=== PATIENT | female | born 1995 | race Caucasian/White ===

== ENCOUNTER 2020-07-28 19:06 | Emergency (ER) | payer OTHER, SELFPAY ==
[2020-07-28 19:34] VITALS: BP 93/66; PULSE 120; RESP 26; TEMP 35.9; O2SAT 100; BMI 24.3
--- NOTE | 2020-07-28 20:15 | ED_ITS ---
HPI - Nausea/Vomiting/Diarrhea General: Chief complaint: Nausea/Vomiting/Diarrhea Stated complaint: N/V/D, SEVERE ABD PAIN Time Seen by Provider: 07/28/20 20:06 Source: patient Mode of arrival: ambulatory Limitations: no limitations History of Present Illness: HPI Narrative: 25-year-old female patient presents to the emergency department with nausea vomiting diarrhea since 7 AM this morning. She reports exposure to other family members with similar symptoms last week. Her spouse was also ill with similar symptoms 2 days ago. She reports continued nausea, has not been able to keep anything down. She denies hematemesis or hematochezia. She denies recent antibiotic use. She denies fever, reports chills. She reports history of EGD years ago, reports chronic alternating pattern of diarrhea and constipation. She reports numerous episodes of diarrhea today. MD elicited complaint: nausea, vomiting and diarrhea Associated nausea: Yes Associated abdominal pain: Yes Location of pain: Epigastric Pain consistency: intermittent Quality: cramping Associated symtoms: Reports decreased urine output, fevers/chills and nausea; Denies altered mental status, anxiety, chest pain, diaphoresis, dysuria, fatigue, headache(s), malaise or palpitations Review of Systems General: Reports: 10 or more systems reviewed and unremarkable except in HPI and below Const: Denies: fever(s), chills, fatigue, malaise or diaphoresis Eyes: Denies: blurry vision or eye redness ENMT: Denies: throat pain, dental pain or disequilibrium Card: Denies: chest pain, palpitations or irregular heart rhythm Resp: Denies: dyspnea, productive cough, non-productive cough or wheezing GI: Reports: abdominal pain (upper), nausea, vomiting and diarrhea; Denies: heartburn, excessive flatus, rectal pain or melena : Denies: difficulty voiding or dysuria Musc: Denies: neck pain, back pain, joint swelling, muscle cramps or muscle weakness Skin/Breast: Denies: rash or pruritus Neuro: Denies: headache(s), weakness in extremities or behavioral changes Psych: Denies: anxiety, depression or change in appetite Missael/Lymph: Denies: easy bruising PFS ED PFSH: Medical History (Updated 07/28/20 @ 22:31 by MARGE Zhang) Healthy adult Female Reproductive History: Date of last menstrual period: 06/19/20 Physical Exam Const: COMMON NORMALS: no acute distress, patient oriented x3 and alert EXAM LIMITATIONS: no altered mental status and no physical limitations GENERAL APPEARANCE: cooperative, well kempt, well hydrated and other (appears not feeling well) NUTRITIONAL APPEARANCE: thin ORIENTATION/CONSCIOUSNESS: Yes awake, Yes oriented to person, Yes oriented to place and Yes oriented to time HENMT: COMMON NORMALS: normocephalic, atraumatic, Normal external nose present and moist oral mucous membranes HEAD & SCALP: normal to inspection, normocephalic and atraumatic FACE & SINUS: normal facial exam and face symmetric NOSE: Normal external nose present MOUTH: moist mucous membranes abnormal (dry) Eye: COMMON NORMALS: Equal, round and reactive pupils present and EOMs intact bilaterally GENERAL EYE: appearance normal, both eyes and all related structures PUPIL: Yes Equal, round and reactive pupils present Neck/C-Spine: COMMON NORMALS: full ROM and no lymphadenopathy GENERAL: Yes normal visual inspection and Yes trachea midline CERVICAL SPINE: Yes cervical ROM normal Lymph: LYMPHATIC: no lymphadenopathy noted Chest: COMMONS NORMALS: normal inspection of the chest Resp: COMMON NORMALS: normal respiratory effort, No retractions, No use of accessory muscles and clear to auscultation bilaterally EFFORT & INSPECTION: Yes able to speak in complete sentences AUSCULTATION: clear to auscultation bilaterally Cardio: COMMON NORMALS: regular rate, regular rhythm, S1 normal heart sound present, S2 normal heart sound present and Peripheral pulses 2+ throughout RATE: regular rate RHYTHM: regular rhythm HEART SOUNDS: S1 normal heart sound present and S2 normal heart sound present PERIPHERAL PULSES: Peripheral pulses 2+ throughout GI: COMMON NORMALS: Normal to inspection, nondistended, normoactive bowel sounds present, Soft to palpation and non-tender INSPECTION: Yes normal to inspection, No abdominal wall ecchymosis, No abdominal distension, No central obesity and No visible herniation PALPATION: Yes Soft to palpation : COMMON NORMALS: Yes no CVA tenderness BLADDER/KIDNEY EXAM: Yes no CVA tenderness Back/Pelvis: COMMON NORMALS: no CVA tenderness and thoracic and lumbar spine normal to inspection Extremity: COMMON NORMALS: normal to inspection, full ROM, capillary refill normal and no pedal edema GENERAL: Yes normal exam except as noted Neuro: COMMON NORMALS: patient oriented x3 and no focal motor deficits SENSORIUM/ORIENTATION: Yes alert, Yes oriented to person, Yes oriented to place and Yes oriented to time Psych: COMMON NORMALS: mental status grossly normal, Normal thought process present and cooperative APPEARANCE: Yes well kempt ACTIVITY/MOTOR BEHAVIOR: Yes appropriate eye contact THOUGHT PROCESS: Normal thought process present Skin: COMMON NORMALS: no rashes or lesions noted, no wounds, turgor normal, no petechiae and no mottling GENERAL SKIN EXAM: no rashes or lesions noted, elasticity normal and turgor normal Course Vital Signs: Vital signs: Vital Signs Temperature 96.6 F L 07/28/20 19:34 Pulse Rate 88 07/28/20 22:54 Respiratory Rate 16 07/28/20 22:54 Blood Pressure 113/72 07/28/20 22:54 Pulse Oximetry 98 07/28/20 22:54 MDM - Nausea/Vomiting/Diarrhea MDM Narrative: Medical decision making narrative: Pleasant 25-year-old female patient presents to the emergency department with 1 day history of nausea vomiting diarrhea. Positive exposure to other individuals with similar symptoms in her family. Normal saline, 1500 cc bolus was provided, Zofran Pepcid also administered, nausea resolved, she was able to tolerate ice chips and drink water. She reports feeling much much better after medication and IV bolus of fluids administered. White blood count slightly elevated which contributes with vomiting, and ion gap abnormal which indicative of dehydration. Urinalysis with bacteria and white blood cells. She was placed on Macrodantin for 3 days twice daily due to potential urinary tract infection findings. Abdominal exam was soft and nonteder without acute abdominal findings. She was placed on Pepcid, Zofran and Macrodantin as outpatient therapy due to probable gastroenteritis. Advised to follow-up with her primary care if she is not feeling well the next 2 to 3 days, advised to return to the emergency department if she develops nausea vomiting despite use of Zofran. Lab Data: Labs: Lab Results 07/28/20 07/28/20 07/28/20 Range/Units 20:43 20:43 21:50 WBC 14.2 H (4.0-10.0) 10^3/ uL RBC 5.71 H (4.1-5.3) 10^6/u L Hgb 16.6 H (11.5-15.3) g/dL Hct 48.9 H (37.0-47.0) % MCV 85.6 (81-99) fL MCH 29.1 (28.0-34.0) pg MCHC 33.9 (30.0-36.0) g/dL RDW 11.9 L (12.1-15.1) % Plt Count 347 (130-400) 10^3/c mm MPV 9.4 (7.4-10.4) fL Neut % (Auto) 92.7 % Lymph % (Auto) 2.6 % [place] % (Auto) 3.9 % Eos % (Auto) 0.0 % Baso % (Auto) 0.4 % Neut # (Auto) 13.15 H (1.8-7.7) 10^3/u L Lymph # (Auto) 0.4 L (0.8-4.8) 10^3/u L [place] # (Auto) 0.6 (0.2-0.9) 10^3/u L Eos # (Auto) 0.0 (0.0-0.8) 10^3/u L Baso # (Auto) 0.1 (0.0-0.1) 10^3/u L Nucleated RBC % (a uto) 0 % Nucleated RBCs # 0.0 /100WBC Sodium 136 (136-145) mmol/L Potassium 4.4 (3.5-5.1) mmol/L Chloride 97 L (98-107) mmol/L Carbon Dioxide 20 L (22-29) mmol/L Anion Gap 23.4 H (5-19) BUN 16 (6-20) mg/dL Creatinine 1.0 H (0.5-0.9) mg/dL GFR Calculation 68.1 L (90-130) mL/min Glucose 121 H (65-115) mg/dL Calculated Osmolal ity 284 L (285-295) mOsm/k g Calcium 10.0 (8.5-10.5) mg/dL Total Bilirubin 0.8 (0.15-1.2) mg/dL AST 19 (0-32) U/L ALT 15 (0-33) U/L Alkaline Phosphata se 76 (35-105) IU/L Total Protein 9.2 H (6.6-8.7) g/dL Albumin 5.2 (3.5-5.2) g/dL Globulin 4.0 (1.3-4.6) g/dL Lipase 30 (13-60) U/L HCG, Qual Negative (Negative) Urine Color (Yellow) Urine Appearance (CLEAR) Urine pH (5-7) Ur Specific Gravit y (1.005-1.030) Urine Protein (Negative) Urine Glucose (UA) (Normal) Urine Ketones (Negative) Urine Blood (Negative) Urine Nitrate (Negative) Urine Bilirubin (Negative) Urine Urobilinogen (Negative) mg/dL Ur Leukocyte Yuly ase (Negative) Urine RBC (0-2) /hpf Urine WBC (0-5) /hpf Ur Squamous Epith Cells (0-5) /hpf Amorphous Sediment Urine Bacteria (NONE) /hpf Hyaline Casts /lpf Urine Mucus /hpf 07/28/20 07/28/20 Range/Units 21:50 22:22 WBC (4.0-10.0) 10^3/ uL RBC (4.1-5.3) 10^6/u L Hgb (11.5-15.3) g/dL Hct (37.0-47.0) % MCV (81-99) fL MCH (28.0-34.0) pg MCHC (30.0-36.0) g/dL RDW (12.1-15.1) % Plt Count (130-400) 10^3/c mm MPV (7.4-10.4) fL Neut % (Auto) % Lymph % (Auto) % [place] % (Auto) % Eos % (Auto) % Baso % (Auto) % Neut # (Auto) (1.8-7.7) 10^3/u L Lymph # (Auto) (0.8-4.8) 10^3/u L [place] # (Auto) (0.2-0.9) 10^3/u L Eos # (Auto) (0.0-0.8) 10^3/u L Baso # (Auto) (0.0-0.1) 10^3/u L Nucleated RBC % (a uto) % Nucleated RBCs # /100WBC Sodium (136-145) mmol/L Potassium (3.5-5.1) mmol/L Chloride (98-107) mmol/L Carbon Dioxide (22-29) mmol/L Anion Gap (5-19) BUN (6-20) mg/dL Creatinine (0.5-0.9) mg/dL GFR Calculation (90-130) mL/min Glucose (65-115) mg/dL Calculated Osmolal ity (285-295) mOsm/k g Calcium (8.5-10.5) mg/dL Total Bilirubin (0.15-1.2) mg/dL AST (0-32) U/L ALT (0-33) U/L Alkaline Phosphata se (35-105) IU/L Total Protein (6.6-8.7) g/dL Albumin (3.5-5.2) g/dL Globulin (1.3-4.6) g/dL Lipase (13-60) U/L HCG, Qual Cancelled (Negative) Urine Color Yellow (Yellow) Urine Appearance Sl cloudy A (CLEAR) Urine pH 5 (5-7) Ur Specific Gravit y 1.025 (1.005-1.030) Urine Protein 1+ H (Negative) Urine Glucose (UA) Norm (Normal) Urine Ketones Negative (Negative) Urine Blood 3+ H (Negative) Urine Nitrate Negative (Negative) Urine Bilirubin 1+ H (Negative) Urine Urobilinogen 1 H (Negative) mg/dL Ur Leukocyte Yuly ase Trace H (Negative) Urine RBC 0-4 H (0-2) /hpf Urine WBC 0-4 H (0-5) /hpf Ur Squamous Epith Cells 15-25 H (0-5) /hpf Amorphous Sediment Not Reportable Urine Bacteria 2+ H (NONE) /hpf Hyaline Casts 15-25 H /lpf Urine Mucus 4+ /hpf Discharge Plan Discharge Patient Disposition: Home Clinical Impression: Nausea & vomiting Qualifiers: Vomiting type: unspecified Vomiting Intractability: intractable Qualified Code(s): R11.2 - Nausea with vomiting, unspecified Diarrhea Qualifiers: Diarrhea type: unspecified type Qualified Code(s): R19.7 - Diarrhea, unspecified UTI (urinary tract infection) Qualifiers: Urinary tract infection type: acute cystitis Hematuria presence: without hematuria Qualified Code(s): N30.00 - Acute cystitis without hematuria Condition: Stable Prescriptions: New Zofran 4 mg tablet 4 mg PO Q4H 5 Days Qty: 14 RF: 0 Macrobid 100 mg capsule 100 mg PO BID 3 Days Qty: 6 RF: 0 Pepcid 20 mg tablet 20 mg PO BID Qty: 20 RF: 0 Discharge Orders: Discharge ED (Routine); Ordered 07/28/20 Ordered By: Dee Barker Referrals: Sarah Damian MD [Primary Care Provider] - Discharge Diet: Advance as tolerated and Clear Liquid Discharge Activity: Limit activity as instructed Patient Instructions: Urinary Tract Infection in Women (ED), Gastroenteritis (ED), Acute Nausea and Vomiting (ED), Opioid Safety Activity Restrictions/Additional Instructions: Clear liquid diet x24 hours, advance as tolerated, avoid greasy fried spicy foods for several days. Advance to bland diet, eggs, toast, applesauce, eat things that will be easier on your stomach. Return the emergency department if you develop fever, vomiting despite use of Zofran or other concerning symptoms Follow-up with your primary care provider if not well in the next 2 to 3 days. 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
[2020-07-28] MEDS: famotidine 20 mg/2 mL INJ 40 MG IVP (20:47)
[2020-07-28] MEDS: ondansetron 2 mg/ML SDV 2 mL 4 MG IVP (20:48)
[2020-07-28] MEDS: sodium chloride 0.9% 1,000 ML 999 ML IV (20:48)
[2020-07-28 20:55] VITALS: BP 93/72; PULSE 82; RESP 18; O2SAT 99
[2020-07-28 21:01] LABS: Basophils # 0.1 10^3/uL (0.0-0.1); Basophils % 0.4 %; Hematocrit 48.9 % (37.0-47.0); Hemoglobin 16.6 g/dL (11.5-15.3); Lymphocytes # 0.4 10^3/uL (0.8-4.8); Lymphocytes % 2.6 %; Mean Corpuscular HGB Conc 33.9 g/dL (30.0-36.0); Mean Corpuscular Hemoglobin 29.1 pg (28.0-34.0); Mean Corpuscular Volume 85.6 fL (81-99); Mean Platelet Volume 9.4 fL (7.4-10.4); Monocytes # 0.6 10^3/uL (0.2-0.9); Monocytes % 3.9 %; Neutrophils # 13.15 10^3/uL (1.8-7.7); Neutrophils % 92.7 %; Nucleated Red Blood Cells % 0 %; Platelet Count 347 10^3/cmm (130-400); Red Blood Count 5.71 10^6/uL (4.1-5.3); Red Cell Distribution Width 11.9 % (12.1-15.1); White Blood Count 14.2 10^3/uL (4.0-10.0)
[2020-07-28 21:16] VITALS: BP 108/68; PULSE 90; RESP 16; O2SAT 98
[2020-07-28 21:19] LABS: Alanine Aminotransferase 15 U/L (0-33); Albumin Level 5.2 g/dL (3.5-5.2); Alkaline Phosphatase 76 IU/L (35-105); Anion Gap 23.4 (5-19); Aspartate Amino Transferase 19 U/L (0-32); Blood Urea Nitrogen 16 mg/dL (6-20); Carbon Dioxide 20 mmol/L (22-29); Chloride 97 mmol/L (98-107); Glomerular Filtration Rate 68.1 mL/min (90-130); Glucose 121 mg/dL (65-115); Lipase 30 U/L (13-60); Osmolality Calculated 284 mOsm/kg (285-295); Potassium 4.4 mmol/L (3.5-5.1); Sodium 136 mmol/L (136-145); Total Bilirubin 0.8 mg/dL (0.15-1.2); Total Protein 9.2 g/dL (6.6-8.7)
[2020-07-28] MEDS: sodium chloride 0.9% 500 ML 999 ML IV (21:49)
[2020-07-28] MEDS: acetaminophen 500 mg Tablet 1000 MG PO (21:52)
[2020-07-28 22:17] LABS: Add Urine Microscopic? YES; Bilirubin Urine 1+ (Negative); Blood Urine 3+ (Negative); Glucose Urine UA Norm (Normal); Ketones Urine Negative (Negative); Leukocyte Esterase Urine Trace (Negative); Nitrate Urine Negative (Negative); Protein Urine 1+ (Negative); Specific Gravity, Urine 1.025 (1.005-1.030); Urine Color Yellow (Yellow); Urobilinogen Urine 1 mg/dL (Negative); pH Urine 5 (5-7)
[2020-07-28 22:20] LABS: Add Urine Culture? No; Bacteria Urine 2+ /hpf; Hyaline Casts Urine 15-25 /lpf; Mucus Urine 4+ /hpf; RBC Urine 0-4 /hpf (0-2); Squamous Epithelial Cell Urine 15-25 /hpf (0-5); WBC Urine 0-4 /hpf (0-5)
[2020-07-28 22:27] LABS: HCG Qualitative Urine. Negative (Negative)
[2020-07-28] MEDS: nitrofurantoin SR (BID) 100 mg Capsule PO (22:36)
[2020-07-28] MEDS: ketorolac 30 mg/mL INJ 15 MG IVP (22:36)
[2020-07-28] MEDS: ondansetron 4 MG Tablet PO (22:40)
[2020-07-28 22:54] VITALS: BP 113/72; PULSE 88; RESP 16; O2SAT 98
== END 2020-07-28 22:55 | disposition home or self-care (01) ==
PROVIDERS: Emergency Medicine; Emergency Provider Nurse Practitioner Family; PCP Family Medicine
DX: R11.2 Nausea with vomiting, unspecified (principal); R19.7 Diarrhea, unspecified; N30.00 Acute cystitis without hematuria
CPT/HCPCS: 80053; 81001; 81025; 83690; 85025; 96361; 96374; 96375; 99284; J1885; J2405; J3490; J7030; J7040; Q0162

== ENCOUNTER → 2021-02-11 08:02 | Outpatient (BNVA) | payer OTHER, SELFPAY | PROVIDERS: PCP Family Medicine; Visit Provider Nurse Practitioner Women's Health | DX: N92.6 Irregular menstruation, unspecified (principal) | CPT/HCPCS: 81025 ==

== ENCOUNTER → 2021-03-28 15:29 | Outpatient (BNVA) | payer OTHER, SELFPAY | PROVIDERS: PCP Family Medicine; Visit Provider Obstetrics & Gynecology | DX: Z34.01 Encounter for supervision of normal first pregnancy, first trimester (principal); Z34.90 Encounter for supervision of normal pregnancy, unspecified, unspecified trimester | CPT/HCPCS: 80307; 84315; 85027; 86592; 86762; 86803; 86850; 86900; 87086; 87340; 87491; 87591 ==

== ENCOUNTER 2021-10-03 17:01 | Inpatient (IN) | payer OTHER, SELFPAY ==
[2021-10-03] VITALS (134 sets, daily range): BP systolic 89–160; BP diastolic 56–93; PULSE 79–187; RESP 18; TEMP 37.3; O2SAT 84–100; BMI 29.5
[2021-10-03] MEDS: lactated ringers 1,000 ML 999 ML IV (17:39)
[2021-10-03 17:56] LABS: Basophils % 0.3 %; Eosinophils % 0.2 %; Hematocrit 37.9 % (37.0-47.0); Hemoglobin 13.9 g/dL (11.5-15.3); Lymphocytes # 2.1 10^3/uL (0.8-4.8); Mean Corpuscular HGB Conc 36.7 g/dL (30.0-36.0); Mean Corpuscular Volume 87.1 fl (81-99); Mean Platelet Volume 11.2 fL (7.4-10.4); Monocytes # 0.6 10^3/uL (0.2-0.9); Monocytes % 4.7 %; Neutrophils # 9.57 10^3/uL (1.8-7.7); Nucleated Red Blood Cells % 0 %; Platelet Count 265 10^3/cmm (130-400); Red Blood Count 4.35 10^6/uL (4.1-5.3); Red Cell Distribution Width 12.2 % (12.1-15.1); White Blood Count 12.5 10^3/uL (4.0-10.0)
[2021-10-03] MEDS: butorphanol 2 mg/mL SDV 1 mL 1 MG IVP (17:59)
--- NOTE | 2021-10-03 18:53 | ANES.PREANE2 ---
Pre-Anesthetic Assessment Height/Weight: Height 1.75 m Weight 90.718 kg Temp Pulse BP Pulse Ox 99.1 F 92 142/72 98 10/03/21 15:46 10/03/21 18:51 10/03/21 18:50 10/03/21 18:51 Preop Diagnosis: Labor Pain AUBRIE Was Beta Tabitha taken within 24 hours: N/A Was Clonidine taken within 24 hours: N/A Social No alcohol and No tobacco Exam alert, oriented x 3, clear to auscultation bilaterally and regular rate & rhythm Airway Submandibular: within normal limits Cervical ROM: within normal limits Mallampati: Class II Dentition: full History/ROS No significant history except as noted and No significant complaints Pulmonary None reported CV/HEM None reported None reported Hepatic None reported GI None reported Metabolic None reported Musc/skel None reported Neuropsych None reported Anesthetic Plan ASA status: 2 Anesthesia: Anesthesia Evaluation and Regional (specify below) Other: AUBRIE Risk of > 500 ml blood loss (7ml/kg in children): No Medications/Allergies Home Medications Medication Instructions Recorded Confirmed Last Taken Type doxylamine succinate 25 mg tablet 25 mg PO Q6H PRN 02/11/21 03/28/21 Unknown History (Unisom (doxylamine)) prenat.vits,ginny,[id number] 1 tab PO DAILY 02/11/21 03/28/21 Unknown History pyridoxine (vitamin B6) 25 mg 25 mg PO DAILY 02/11/21 03/28/21 Unknown History tablet sertraline 50 mg tablet 50 mg PO DAILY 02/11/21 03/28/21 Unknown History famotidine 20 mg tablet (Pepcid) 20 mg PO DAILY 03/04/21 03/28/21 Unknown History promethazine 25 mg tablet 25 mg PO Q6H PRN #30 tab 03/11/21 03/28/21 Unknown Rx metoclopramide HCl 5 mg tablet 5 mg PO QID PRN #90 tab 03/19/21 03/28/21 Unknown Rx (Reglan) Allergies Allergy/AdvReac Type Severity Reaction Status Date / Time No Known Allergies Allergy Verified 04/02/21 09:35 Current Medications Generic Name Dose Route Start Last Admin Trade Name Freq PRN Reason Stop Dose Admin Butorphanol Tartrate 1 mg 10/03/21 17:02 10/03/21 17:59 Butorphanol 2 Mg/Ml Sdv 1 Ml IVP 1 mg Q2H PRN Administration SEVERE PAIN Lactated Ringer's 1,000 mls @ 999 mls/hr 10/03/21 17:05 10/03/21 17:39 Lactated Ringers IV 999 mls/hr .Q1H1M PRN Administration See label comments PFSH Anesthesia Medical History No pertinent past medical history neghx: htn,dm,thyroid,dvt/pe PCP: Sarah Damian Surgical History History of tonsillectomy and adenoidectomy (~1999) Family History Mother Hypercholesteremia Hypertension Grandfather Hypertension Paternal Denies family history of Colon cancer Ovarian cancer Diabetes Heart disease Breast cancer Uterine cancer Thyroid disease Stroke Female Reproductive History Date of last menstrual period: 06/19/20 : 1 Data Anesthesia : 10/03/21 17:30 Short CBC 10/03/21 Range/Units 17:30 WBC 12.5 H (4.0-10.0) 10^3/uL Hgb 13.9 (11.5-15.3) g/dL Hct 37.9 (37.0-47.0) % MCV 87.1 (81-99) fl Plt Count 265 (130-400) 10^3/cmm Neut % (Auto) 77.0 % Neut # (Auto) 9.57 H (1.8-7.7) 10^3/uL Cardiac Studies: No Data to Display
--- NOTE | 2021-10-03 18:55 | ANES.PROC ---
Anesthesia Procedures Procedure/Date: 10/03/21 Epidural: Time Out Performed: Yes Consents Signed: Procedure Consent Consent: requested by attending/covering physician, from patient, risks and benefits reviewed and patient agrees to proceed Lumbar Level: L4-L5 Epidural position: sitting Epidural procedure: sterile prep of area, 1% lidocaine to numb the area, 18 g needle, neg for paresthesia, test dose given, 1.5% xylocaine 1:200k epi (4cc), 0.2% Ropivacaine bolus ml (4cc and Fentanyl 100mcg), placed PCEA, no systemic response, sterile dressing applied, L.U.D. no apparent complications and 0.2% Ropiavacaine @ mls/hr (13cc/hour)
[2021-10-03] MEDS: dextrose 5%-lactated ringers 1,000 ML 125 ML IV (19:16)
--- NOTE | 2021-10-03 22:35 | PM.HP ---
Providers/Chief Complaint Admitting Physician: Case Rodriguez MD Primary Care Provider: Sarah Damian MD Chief Complaint: Contractions History of Present Illness Aleena English is a 26 year old G1, P0 at 40.0 weeks gestation. This is a patient of Dr. Melendrez for whom I am covering. Her is currently uncomplicated. The patient presented to labor and delivery due to contractions that started at approximately 12:30 PM on 10/03/2021. The contractions gradually got stronger so she presented for further evaluation. In labor and delivery she was noted to be 2 cm dilation and after an hour changed to 3 cm. The patient denies any chest pains, shortness of breath, nausea, vomiting, headache, cough, fever, leakage of fluid, vaginal bleeding. Medications/Allergies Home Medications Medication Instructions Recorded Confirmed Last Taken Type doxylamine succinate 25 mg tablet 25 mg PO Q6H PRN 02/11/21 03/28/21 Unknown History (Unisom (doxylamine)) prenat.vits,ginny,[id number] 1 tab PO DAILY 02/11/21 03/28/21 Unknown History pyridoxine (vitamin B6) 25 mg 25 mg PO DAILY 02/11/21 03/28/21 Unknown History tablet sertraline 50 mg tablet 50 mg PO DAILY 02/11/21 03/28/21 Unknown History famotidine 20 mg tablet (Pepcid) 20 mg PO DAILY 03/04/21 03/28/21 Unknown History promethazine 25 mg tablet 25 mg PO Q6H PRN #30 tab 03/11/21 03/28/21 Unknown Rx metoclopramide HCl 5 mg tablet 5 mg PO QID PRN #90 tab 03/19/21 03/28/21 Unknown Rx (Reglan) Allergies Allergy/AdvReac Type Severity Reaction Status Date / Time No Known Allergies Allergy Verified 04/02/21 09:35 PFSH Acute PFSH: Medical History No pertinent past medical history neghx: htn,dm,thyroid,dvt/pe PCP: Sarah Damian Surgical History History of tonsillectomy and adenoidectomy (~1999) Family History Mother Hypercholesteremia Hypertension Grandfather Hypertension Paternal Denies family history of Colon cancer Ovarian cancer Diabetes Heart disease Breast cancer Uterine cancer Thyroid disease Stroke Social History (Updated 10/03/21 @ 22:41 by Case Rodriguez MD) Smoking and tobacco status: never smoked Alcohol intake: never Female Reproductive History: Date of last menstrual period: 06/19/20 : 1 Vitals/I&O/Wt Last Vital Signs Temp 99.1 F 10/03/21 15:46 Pulse 101 H 10/03/21 22:31 Resp 18 10/03/21 17:03 BP 133/85 10/03/21 22:22 Pulse Ox 98 10/03/21 22:31 Weight last 48 hrs Weight 200 lb Physical Exam Narrative: General: Alert and oriented x3 Eyes: Pupils equal round and reactive to light and accommodation Mouth: Mucous membranes moist, pharynx non-erythematous Cardiac: Regular rate and rhythm without murmurs Lungs: Clear to auscultation bilaterally without wheezes, crackles or rhonchi Abdomen: Soft, non-tender, fundus consistent with gestational age Extremities: Trace edema in the bilateral lower extremities Urinary Catheter Management: Dowell: Cath Placed During This Visit: yes Urinary Catheter Date of Insertion: 10/03/21 Urinary Catheter Time of Insertion: 19:40 Data : 10/03/21 17:30 A&P Assessment and plan (1) Intrauterine : Status: Acute Plan The patient is doing well at this time. heart tones are in the mid 140s with moderate variability and good accelerations with a category 1 tracing. The patient has received a laboring epidural and is comfortable. She is nusrat on her own every 1 to 3 minutes. She has not needed any Pitocin for augmentation of labor. She is currently intact and we will plan to perform AROM to augment the labor process as she is currently 8 cm dilated. All questions were answered. The patient and her are in agreement with the current plan of care. Attestations Medical Necessity Statement*: The patient will be here for greater than 2 midnights due to routine intrapartum and management of labor and delivery. Coding Level of Care Code Acute Construction Cost Estimator for Nithya Rodriguez Diagnoses Intrauterine Z34.90
--- NOTE | 2021-10-03 22:40 | P.ANESASSM_ITS ---
Pre-Anesthetic Assessment Height/Weight: Height 1.75 m Weight 90.718 kg Temp Pulse Resp BP Pulse Ox 99.1 F 94 18 133/85 98 10/03/21 15:46 10/03/21 22:36 10/03/21 17:03 10/03/21 22:22 10/03/21 22:36 Preop Diagnosis: Labor Pain Familial anesthetic complications: AUBRIE Was Beta Tabitha taken within 24 hours: N/A Was Clonidine taken within 24 hours: N/A Social No alcohol and No tobacco Exam alert, oriented x 3, clear to auscultation bilaterally and regular rate & rhythm History/ROS No significant history except as noted and No significant complaints Pulmonary None reported CV/HEM None reported None reported Hepatic None reported GI None reported Metabolic None reported Musc/skel None reported Neuropsych None reported Anesthetic Plan ASA status: 2 Anesthesia: Anesthesia Evaluation and Regional (specify below) Other: AUBRIE Risk of > 500 ml blood loss (7ml/kg in children): No Medications/Allergies Home Medications Medication Instructions Recorded Confirmed Last Taken Type doxylamine succinate 25 mg tablet 25 mg PO Q6H PRN 02/11/21 03/28/21 Unknown History (Unisom (doxylamine)) prenat.vits,ginny,[id number] 1 tab PO DAILY 02/11/21 03/28/21 Unknown History pyridoxine (vitamin B6) 25 mg 25 mg PO DAILY 02/11/21 03/28/21 Unknown History tablet sertraline 50 mg tablet 50 mg PO DAILY 02/11/21 03/28/21 Unknown History famotidine 20 mg tablet (Pepcid) 20 mg PO DAILY 03/04/21 03/28/21 Unknown Hist ory promethazine 25 mg tablet 25 mg PO Q6H PRN #30 tab 03/11/21 03/28/21 Unknown Rx metoclopramide HCl 5 mg tablet 5 mg PO QID PRN #90 tab 03/19/21 03/28/21 Unknown Rx (Reglan) Allergies Allergy/AdvReac Type Severity Reaction Status Date / Time No Known Allergies Allergy Verified 04/02/21 09:35 Current Medications Generic Name Dose Route Start Last Admin Trade Name Freq PRN Reason Stop Dose Admin Butorphanol Tartrate 1 mg 10/03/21 17:02 10/03/21 17:59 Butorphanol 2 Mg/Ml Sdv 1 Ml IVP 1 mg Q2H PRN Administration SEVERE PAIN Dextrose/Lactated Ringer's 1,000 mls @ 125 mls/hr 10/03/21 17:15 10/03/21 19:16 Dextrose 5%-Lactated Ringers IV 125 mls/hr .Q8H ROJAS Administration Lactated Ringer's 1,000 mls @ 999 mls/hr 10/03/21 17:05 10/03/21 17:39 Lactated Ringers IV 999 mls/hr .Q1H1M PRN Administration See label comments PFSH Anesthesia Medical History No pertinent past medical history neghx: htn,dm,thyroid,dvt/pe PCP: Sarah Damian Surgical History History of tonsillectomy and adenoidectomy (~1999) Family History Mother Hypercholesteremia Hypertension Grandfather Hypertension Paternal Denies family history of Colon cancer Ovarian cancer Diabetes Heart disease Breast cancer Uterine cancer Thyroid disease Stroke Social History Smoking and tobacco status: never smoked Alcohol intake: never Female Reproductive History Date of last menstrual period: 06/19/20 : 1 Data Anesthesia : 10/03/21 17:30 Short CBC 10/03/21 Range/Units 17:30 WBC 12.5 H (4.0-10.0) 10^3/uL Hgb 13.9 (11.5-15.3) g/dL Hct 37.9 (37.0-47.0) % MCV 87.1 (81-99) fl Plt Count 265 (130-400) 10^3/cmm Neut % (Auto) 77.0 % Neut # (Auto) 9.57 H (1.8-7.7) 10^3/uL Cardiac Studies: No Data to Display
--- NOTE | 2021-10-03 22:43 | P.ANES_ITS ---
Anesthesia Procedures Procedure/Date: 10/03/21 Epidural: Time Out Performed: Yes Consents Signed: Procedure Consent Consent: from patient, risks and benefits reviewed and patient agrees to proceed Lumbar Level: L3-L4 Epidural position: sitting Epidural procedure: sterile prep of area, 1% lidocaine to numb the area, 18 g needle, neg for parest hesia, test dose given, 1.5% xylocaine 1:200k epi (5cc), 0.2% Ropivacaine bolus ml (4cc and Fentanyl 100mcg), placed PCEA, no systemic response, sterile dressing applied, L.U.D. no apparent complications and 0.2% Ropiavacaine @ mls/hr (13cc/hour)
[2021-10-04] VITALS (58 sets, daily range): BP systolic 105–133; BP diastolic 58–90; PULSE 78–158; RESP 20; TEMP 36.1–36.4; O2SAT 92–100
[2021-10-04] MEDS: lidocaine 2% INJ 20 mL INJECTION (02:15)
--- NOTE | 2021-10-04 03:14 | P.PCNOB_ITS ---
Delivery Note: Date of delivery: October 04, 2021 Pre-delivery diagnoses: 1. Intrauterine at 40.1 weeks gestation 2. Anxiety on sertraline 3. Spontaneous labor Post-delivery diagnoses: 1. Intrauterine status post spontaneous vaginal delivery at 40.1 weeks gestation 2. Anxiety on sertraline 3. Spontaneous labor 4. Delivery of healthy infant female weighing 8 pounds 9 ounces with Apgars of 8 and 8. 5. Second-degree vaginal laceration with repair Procedure: Spontaneous vaginal delivery Second-degree vaginal laceration with repair Delivering Physician: Case Rodriguez MD Estimated blood loss (mL): 250 Findings: 1. Healthy female weighing 8 pounds 9 ounces with Apgars of 8 and 8 2. Second-degree vaginal laceration that extended near the rectum, however did not extend to the anal sphincter. Pre-Delivery Course: Aleena is a 26-year-old G1 now P1 status post spontaneous vaginal delivery. Her was complicated by anxiety on sertraline. She presented to labor and delivery with spontaneous contractions that started at approximately 12:30 PM on 10/03/2021. She made gradual change and was admitted for spontaneous labor. She received a laboring epidural that helped initially. The patient was 8 cm dilated and had a bulging bag so AROM was performed at 20- 25 on 10/03/2021 to augment labor. Thick meconium was noted. The patient then continued to change and was complete by 2358 on 10/03/2021. Delivery: The patient began pushing at 12:41 AM. The patient pushed well and the infant descended slowly. The patient had significant vaginal wall swelling. The infant was born in the OA position at 2:02 AM on 10/04/2021. A nuchal cord was present and reduced prior to delivery of the 's body. The left shoulder was the anterior shoulder and it delivered with ease. The rest of the infant delivered without complication. The 's mouth and nose were bulb suctioned by myself and the was crying and vigorous immediately after delivery. The patient was placed on the mother's chest where the nurses were waiting to care for her. The cord was clamped by myself after approximately 1 minute. The cord was cut by the infant's father. Cord blood was obtained and the cord was drained of blood. Traction was placed on the umbilical cord and the placenta delivered without complication at 2:12 AM on 10/04/2021. The placenta was noted to be intact with a peripheral umbilical cord insertion site. The uterus was massaged and was noted to be firm and there was very little ble eding. The cervix was inspected and no lacerations were noted. The vaginal was inspected and the patient had a very large, stellate second-degree perineal laceration. The anal sphincter was evaluated and noted to be intact. 2% lidocaine was used for anesthesia locally. The perineal laceration was then repaired in a running fashion. The patient tolerated this well. The rectum was inspected digitally and no sutures were noted in the rectal vault. Currently both the mother and are doing well. History History History 1 Term 1 Miscarriages/Ectopic Living Children 1 A&P Assessment and plan (1) Spontaneous vaginal delivery: Status: Acute (2) Perineal laceration complicating delivery: Status: Acute Coding Level of Care Code Acute Student Records Specialist for [facility] Fwd Diagnoses Spontaneous vaginal delivery O80 Perineal laceration complicating delivery O70.9
[2021-10-04] MEDS: oxytocin 30 UNIT/500 ML BAG 600 UNIT IV (06:55)
[2021-10-04] MEDS: ibuprofen 800 mg tablet PO ×3 (08:22→21:20)
[2021-10-04] MEDS: docusate sodium 100 mg Capsule PO ×2 (08:22→16:22)
[2021-10-04] MEDS: prenatal vitamin Capsule 1 CAP PO (08:22)
--- NOTE | 2021-10-04 08:28 | ANE.PACU2 ---
Inpatient post-anesthesia follow up: Airway intact: Yes Vital signs: Temperature 97.3 F Pulse Rate 110 Respiratory Rate 18 Blood Pressure 133/59 Pulse Oximetry 97 Oxygen Delivery Me thod Room Air Oxygen Flow Rate Fraction of Inspir ed Oxygen Hydration adequate: Yes Nausea and vomiting: No Pain level: 1 Mental status: Baseline
--- NOTE | 2021-10-04 12:26 | PC.NURSE ---
Patient encouraged to get up to bathroom and void at this time.
[2021-10-04 14:41] LABS: Hematocrit 27.9 % (37.0-47.0); Hemoglobin 10.2 g/dL (11.5-15.3); Mean Corpuscular HGB Conc 36.6 g/dL (30.0-36.0); Mean Corpuscular Hemoglobin 32.2 pg (28.0-34.0); Mean Platelet Volume 10.9 fL (7.4-10.4); Platelet Count 226 10^3/cmm (130-400); Red Blood Count 3.17 10^6/uL (4.1-5.3); Red Cell Distribution Width 12.6 % (12.1-15.1); White Blood Count 20.2 10^3/uL (4.0-10.0)
[2021-10-05 05:36] VITALS: BP 116/72; PULSE 102
[2021-10-05] MEDS: docusate sodium 100 mg Capsule PO (08:25)
[2021-10-05] MEDS: ibuprofen 800 mg tablet PO (08:25)
[2021-10-05] MEDS: prenatal vitamin Capsule 1 CAP PO (08:25)
[2021-10-05 09:00] VITALS: RESP 16; TEMP 36.4
--- NOTE | 2021-10-05 09:51 | P.DS_ITS ---
Discharge Providers Date of Admission: 10/03/21 17:01 Date of Discharge: October 05, 2021 Attending Provider at Admission: Case Rodriguez MD Attending Provider at Discharge: Case Rodriguez MD Primary Care Provider: Sarah Damian MD Diagnoses at Discharge Discharge Diagnosis (1) Spontaneous vaginal delivery: Status: Acute (2) Perineal laceration complicating delivery: Status: Acute Other Information Additional DC diagnoses/information: 1.? Intrauterine status post spontaneous vaginal delivery at 40.1 weeks gestation 2.? Anxiety on sertraline 3.? Spontaneous labor 4.? Delivery of healthy female weighing 8 pounds 9 ounces with Apgars of 8 and 8. 5.? Second-degree vaginal laceration with repair? Reason for Visit Reason for Visit: Contractions Hospital Course Hospital Course Aleena is a 26-year-old G1 now P1 status post spontaneous vaginal delivery.? Her was complicated by anxiety on sertraline.? She presented to labor and delivery with spontaneous contractions that started at approximately 12:30 PM on 10/03/2021.? She made gradual change and was admitted for spontaneous labor.? She received a laboring epidural that helped initially.? The patient was 8 cm dilated and had a bulging bag so AROM was performed at 20-25 on 10/03/2021 to augment labor.? Thick meconium was noted.? The patient then continued to change and was complete by 2358 on 10/03/2021. The patient began pushing at 12:41 AM.? The patient pushed well and the descended slowly.? The patient had significant vaginal wall swelling.? The infant was born in the OA position at 2:02 AM on 10/04/2021.? A nuchal cord was present and reduced prior to delivery of the 's body.? The left shoulder was the anterior shoulder and it delivered with ease.? The rest of the delivered without complication.? The 's mouth and nose were bulb suctioned by myself and the infant was crying and vigorous immediately after delivery.? The patient was placed on the mother's chest where the nurses were waiting to care for her.? The cord was clamped by myself after approximately 1 minute.? The cord was cut by the infant's father.? Cord blood was obtained and the cord was drained of blood.? Traction was placed on the umbilical cord and the placenta delivered without complication at 2:12 AM on 10/04/2021.? The placenta was noted to be intact with a peripheral umbilical cord insertion site.? The uterus was massaged and was noted to be firm and there was very little bleeding.? The cervix was inspected and no lacerations were noted.? The vaginal was inspected and the patient had a very large, stellate second-degree perineal laceration.? The anal sphincter was evaluated and noted to be intact.? 2% lidocaine was used for anesthesia locally.? The perineal laceration was then repaired in a running fashion.? The patient tolerated this well.? The rectum was inspected digitally and no sutures were noted in the rectal vault.? Currently both the mother and infant are doing well. Physical Exam Narrative: General: Alert and oriented x3 Cardiac: Regular rate and rhythm without murmurs Lungs: Clear to auscultation bilaterally without wheezes, crackles or rhonchi Abdomen: Soft, mild tenderness over uterus. The uterus is firm and 2 cm below the umbilicus. Extremities: Trace edema in the bilateral lower extremities Urinary Catheter Management: Dowell: Cath Placed During This Visit: yes, but has since been removed by the nurse Reason for Continuing Indwelling Catheter: Decision to DC Catheter Urinary Catheter Date of Insertion: 10/03/21 Urinary Catheter Time of Insertion: 19:40 Date Urinary Catheter Removed: 10/04/21 Time Urinary Catheter Discontinued: 00:35 Discharge Data Studies Completed and Pending Laboratory Results WBC 20.2 10^3/uL (4.0-10.0) H 10/04/21 14: RBC 3.17 10^6/uL (4.1-5.3) L 10/04/21 14:28 Hgb 10.2 g/dL (11.5-15.3) L 10/04/21 14: Hct 27.9 % (37.0-47.0) L 10/04/21 14:28 MCV 88.0 fl (81-99) 10/04/21 14:28 MCH 32.2 pg (28.0-34.0) 10/04/21 14: MCHC 36.6 g/dL (30.0-36.0) H 10/04/21 14:28 RDW 12.6 % (12.1-15.1) 10/04/21 14:28 Plt Count 226 10^3/cmm (130-400) 10/04/21 14:28 MPV 10.9 fL (7.4-10.4) H 10/04/21 14:28 Neut % (Auto) 77.0 % 10/03/21 17:30 Lymph % (Auto) 17.0 % 10/03/21 17:30 [place] % (Auto) 4.7 % 10/03/21 17:30 Eos % (Auto) 0.2 % 10/03/21 17:30 Baso % (Auto) 0.3 % 10/03/21 17:30 Neut # (Auto) 9.57 10^3/uL (1.8-7.7) H 10/03/21 17:30 Lymph # (Auto) 2.1 10^3/uL (0.8-4.8) 10/03/21 17:30 [place] # (Auto) 0.6 10^3/uL (0.2-0.9) 10/03/21 17:30 Eos # (Auto) 0.0 10^3/uL (0.0-0.8) 10/03/21 17:30 Baso # (Auto) 0.0 10^3/uL (0.0-0.1) 10/03/21 17:30 Nucleated RBC % (auto) 0 % 10/03/21 17:30 Nucleated RBCs # 0.0 /100WBC 10/03/21 17:30 Vitals Last Vital Signs Temp 97.0 F L 10/04/21 21:27 Pulse 102 H 10/05/21 05:36 Resp 20 H 10/04/21 09:40 BP 116/72 10/05/21 05:36 Pulse Ox 97 10/04/21 09:40 Discharge Plan Discharge Patient Disposition: Home Condition: Good Prescriptions: New hydrocodone-acetaminophen 5-325 mg Tablet 1 tab PO Q6H PRN (Reason: Moderate To Severe Pain) Qty: 15 0RF ibuprofen 800 mg Tablet 800 mg PO TID Qty: 30 0RF ferrous sulfate 325 mg (65 mg iron) tablet 325 mg PO DAILY Qty: 30 0RF Continued sertraline 50 mg tablet 50 mg PO DAILY 0RF Unisom (doxylamine) 25 mg tablet 25 mg PO Q6H PRN0RF prenat.vits,ginny,qvb-evei-fklwi Tablet 1 tab PO DAILY 0RF pyridoxine (vitamin B6) 25 mg tablet 25 mg PO DAILY 0RF famotidine [Pepcid] 20 mg tablet 20 mg PO DAILY 0RF Discontinued promethazine 25 mg tablet 25 mg PO Q6H PRN (Reason: nausea and vomiting) Qty: 30 0RF metoclopramide HCl [Reglan] 5 mg tablet 5 mg PO QID PRN (Reason: nausea and vomiting) Qty: 90 0RF Rx Instructions: Take before meals and at bedtime Discharge Orders: Discharge Order (Routine); Ordered 10/05/21 Ordered By: Case Rodriguez Referrals: Cyrus Melendrez MD [Physician] - 6 Weeks Discharge Diet: Regular Discharge Activity: Increase activity as tolerated Patient Instructions: Depression (DC), Bleeding (DC), Preeclampsia and Eclampsia After Delivery (GEN), OB Discharge Report, OB Food/Drug Interaction Guide, Opioid Safety, OB [facility], OB Vaginal Deliveries, Abnormal Bleeding Activity Restrictions/Additional Instructions: Nothing per vagina for 6 weeks. I recommend showers over bathing for the first 6 weeks. Discharge Attestations Time Spent in Discharge Care*: greater than 30 min Quality Metrics Clinical Quality Measures [ No reported AMI, CVA or VTE this stay] Coding Level of Care Code Acute Chg FW DC note Diagnoses Spontaneous vaginal delivery O80 Perineal laceration complicating delivery O70.9
[2021-10-05 10:09] VITALS: BP 119/75; PULSE 100
[2021-10-05 11:00] VITALS: BP 119/75; PULSE 100; RESP 16; TEMP 36.4
== END 2021-10-05 11:20 | disposition home or self-care (01) | DRG 807 ==
LOC: OPOB 17:02 → OBGYN 17:02
PROVIDERS: Admitting Provider Family Medicine; PCP Family Medicine; Visit Provider Family Medicine
DX: O48.0 Post-term pregnancy (principal); Z37.0 Single live birth; Z3A.40 40 weeks gestation of pregnancy; O99.344 Other mental disorders complicating childbirth; F32.A Depression, unspecified; O70.1 Second degree perineal laceration during delivery; O32.6XX0 Maternal care for compound presentation, not applicable or unspecified; F41.9 Anxiety disorder, unspecified
CPT/HCPCS: 36415; 51702; 59025; 59409; 85025; 85027; 96374; 99211; J0595; J2795; J3010

== ENCOUNTER → 2021-12-18 13:32 | Outpatient (BNVA) | payer OTHER, SELFPAY | PROVIDERS: PCP Family Medicine; Visit Provider Nurse Practitioner Family | DX: Z30.9 Encounter for contraceptive management, unspecified (principal) | CPT/HCPCS: 81025 ==

== ENCOUNTER 2023-01-14 08:19 | Outpatient (CLI) | payer OTHER, SELFPAY ==
--- NOTE | 2023-01-14 08:32 | XR_ITS ---
WS: [id number] EXAMINATION: XR femur RT min 2V* [id number] REASON FOR EXAM: Right leg pain in upper quad COMPARISON: None available. ORDER DATE: 01/14/2023 8:37 AM FINDINGS: There is no sign of any acute osseous or articular abnormality. There are no specific soft tissue abn ormalities. IMPRESSION: No acute osseous change
== END 2023-01-14 08:20 | disposition home or self-care (01) ==
PROVIDERS: PCP Family Medicine; Visit Provider Family Medicine
DX: M79.604 Pain in right leg (principal)
CPT/HCPCS: 73552

== ENCOUNTER → 2024-01-25 11:13 | Outpatient (BNVA) | payer OTHER, SELFPAY | PROVIDERS: PCP Family Medicine; Visit Provider Family Medicine | DX: Z34.90 Encounter for supervision of normal pregnancy, unspecified, unspecified trimester (principal) | CPT/HCPCS: 87624 ==

== ENCOUNTER → 2024-12-25 11:23 | Outpatient (BNVA) | payer OTHER, SELFPAY | PROVIDERS: PCP Family Medicine; Visit Provider Family Medicine | DX: Z34.90 Encounter for supervision of normal pregnancy, unspecified, unspecified trimester (principal) | CPT/HCPCS: 81025 ==

== ENCOUNTER 2025-02-28 05:48 | Day surgery (SDC) | payer OTHER, SELFPAY ==
[2025-02-28] VITALS (10 sets, daily range): BP systolic 105–158; BP diastolic 56–103; PULSE 77–84; RESP 16–17; TEMP 36.2–36.8; O2SAT 95–100; BMI 26.6
--- NOTE | 2025-02-28 06:42 | ANES.PREANE2 ---
Pre-Anesthetic Assessment Height/Weight: Height 5 ft 9 in Weight 180 lb O2 Del Method Room Air 02/28/25 06:09 Preop Diagnosis: Spontaneous Operation Date: 02/28/25 07:00 Proposed Procedures p Dilation And Curettage (D&C) D&C(Not Applicable) - Cyrus Melendrez MD Was Beta Tabitha taken within 24 hours: N/A Was Clonidine taken within 24 hours: N/A Last intake: Intake Last Liquid Date 02/27/25 Last Liquid Time 19:00 Last Solid Date 02/27/25 Last Solid Time 19:00 Social No alcohol and No tobacco Exam alert, oriented x 3, clear to auscultation bilaterally and regular rate & rhythm Airway Submandibular: within normal limits Cervical ROM: within normal limits Mallampati: Class I Dentition: full Anesthetic Plan ASA status: 2 Anesthesia: General Other: No prior issues with anesthesia NPO since yesterday evening Patient states that she had a miscarriage in January and has been dealing with bleeding since that time Patient states that she would have been 8 weeks at the time of miscarriage Denies any cardiac or pulmonary issues METs greater than 4 Plan for general anesthesia Medications/Allergies Home Medications ?Medication ?Instructions ?Recorded ?Confirmed ?Last Taken ?Type cetirizine 10 mg tablet (All Day 10 mg PO DAILY PRN allergies 01/25/24 02/27/25 Unknown History Allergy (cetirizine)) Fertility Awareness Based #1 ea 05/01/24 01/06/25 Unknown Rx Contraception Method [id number]-[id number]-Mw-FA 1 mg 1 tab PO DAILY 02/27/25 02/27/25 02/27/25 History tablet Allergies Allergy/AdvReac Type Severity Reaction Status Date / Time No Known Allergies Allergy Verified 02/27/25 16:58 [facility] Anesthesia Medical History No pertinent past medical history neghx: htn,dm,thyroid,dvt/pe PCP: Dr Rodriguez Surgical History History of tonsillectomy and adenoidectomy (~1999) Family History Mother Hypercholesteremia Hypertension Grandfather Hypertension Paternal Denies family history of Colon cancer Ovarian cancer Diabetes Heart disease Breast cancer Uterine cancer Thyroid disease Stroke Social History Smoking and tobacco/nicotine status: never used tobacco/nicotine Alcohol intake: never Substance/Drug Use: never Current occupation: [employer] Machine Operator
--- NOTE | 2025-02-28 07:01 | W.PM.OPSUD ---
Surgery/Procedure H&P Update DATE OF PROCEDURE: February 28, 2025 DATE H&P PERFORMED: 02/27/25 CHANGES TO PREVIOUS DOCUMENTATION: No changes PREOP DIAGNOSIS: Missed PLANNED PROCEDURE: Operation Date: 02/28/25 07:00 Proposed Procedures p Dilation And Curettage (D&C) D&C(Not Applicable) - Cyrus Melendrez MD Related Problem List Diagnoses 1. Missed with demise before 20 completed weeks of gestation: Proceed with a dilation and curettage. I discussed the options with the patient. We have also discussed the risks of the procedure including the risk of anesthesia, bleeding, and perforation. She and her have no further questions and wished to proceed.
--- NOTE | 2025-02-28 07:36 | PM.OP ---
Operative Report Date of procedure: February 28, 2025 Pre-op diagnosis: 29-year-old 1 with first trimester missed Post-op diagnosis: Status post dilation curettage Procedure done: Dilation curettage Specimens removed/disposition: Intrauterine products of conception Pathology: Products of conception Surgeon: Cyrus Melendrez MD Estimated blood loss (mL): 20 Complications: None Procedure: The patient was brought back to the operating room where she was placed under general anesthesia. She was then prepped and draped in usual fashion in the dorsolithotomy position. A weighted speculum was placed. A single-tooth tenaculum was then used to grasp the anterior lip of the cervix. The cervix was then sequentially dilated. The intrauterine cavity was then carefully curettaged with a sharp curette. The uterine cry was appreciated in all 4 quadrants of the intrauterine cavity. The tenaculum was then removed from the cervix. The cervix was observed for bleeding. Direct pressure was placed for about 10 seconds. Excellent hemostasis was noted. There were no complications. Procedure was tolerated well.
[2025-02-28] MEDS: ondansetron 2 mg/ML SDV 2 mL 4 MG IVP (07:47)
--- NOTE | 2025-02-28 08:48 | ANE.PACU2 ---
Inpatient post-anesthesia follow up: Airway intact: Yes Vital signs: Temperature 97.2 F Pulse Rate 81 Respiratory Rate 16 Blood Pressure 119/75 Pulse Oximetry 99 Oxygen Delivery Me thod Room Air Oxygen Flow Rate Fraction of Inspir ed Oxygen Hydration adequate: Yes Nausea and vomiting: No Pain level: 1 Mental status: Baseline
== END 2025-02-28 08:48 | disposition home or self-care (01) ==
PROVIDERS: PCP Family Medicine; Visit Provider Family Medicine
PROC: (CPT 58120; principal; 2025-02-28 07:00)
DX: O02.1 Missed abortion (principal)
CPT/HCPCS: 59820; 88305; A4216; J1100; J1885; J2250; J2405; J2704; J3010; J7030; J9999